=== PATIENT | female | born 1945 | race Caucasian/White ===

== ENCOUNTER 2018-01-01 19:29 | Emergency (ER) | payer OTHER, MEDICARE ==
[~2018-01-01] VITALS: Ht 162.6 cm; Wt 68.0 kg
[2018-01-01 19:30] VITALS: BP_SYST 192
[2018-01-01] MEDS ORDERED: MORPHINE 4 MG/ML INJ. SYRINGE IVP ONE (20:00)
[2018-01-01] MEDS ORDERED: KETOROLAC TROMETHAMINE 30 MG VIAL IVP ONE (20:00)
[2018-01-01] MEDS ORDERED: fentaNYL CITRATE/PF 100 MCG/2 ML AMP IVP ONE ×2 (20:15→21:15)
[2018-01-01 22:12] VITALS: BP_SYST 157
== END 2018-01-01 22:12 | disposition home or self-care (01) ==
LOC: SED 19:29
DX: G89.29 Other chronic pain (principal); M54.5 Low back pain; R03.0 Elevated blood-pressure reading, without diagnosis of hypertension
CPT/HCPCS: 96374; 96375; 96376; 99284; J1885; J2270; J3010